=== PATIENT | female | born 1975 | race American Indian/Alaskan Native ===

== ENCOUNTER 2018-12-03 15:35 | Emergency (ER) | payer SELFPAY ==
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
[2018-12-03 15:51] VITALS: BP 118/63
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
[2018-12-03] MEDS ORDERED: IBUPROFEN 800 MG TAB PO ONE (17:57)
== END 2018-12-03 18:36 | disposition home or self-care (01) ==
LOC: ED 15:35
DX: S16.1XXA Strain of muscle, fascia and tendon at neck level, initial encounter (principal); S39.012A Strain of muscle, fascia and tendon of lower back, initial encounter; Z79.1 Long term (current) use of non-steroidal anti-inflammatories (NSAID); Z79.899 Other long term (current) drug therapy; V89.2XXA Person injured in unspecified motor-vehicle accident, traffic, initial encounter; Y93.89 Activity, other specified; Y92.488 Other paved roadways as the place of occurrence of the external cause; Y99.8 Other external cause status
CPT/HCPCS: 99282